=== PATIENT | female | born 1935 | race Caucasian/White ===

== ENCOUNTER → 2018-08-01 | Outpatient (CLI) | payer MEDICARE, OTHER ==
[~2018-08-01] MED LIST: LINA5TAB PO; LISI-170 PO; ROSU10TA2 PO
[2018-08-01 14:36] LABS: ALANINE AMINOTRANSFERASE 12 U/L (12-78); ALBUMIN 3.5 g/dL (3.4-5.0); ANION GAP 6 mmol/L (5-15); CALCIUM 8.9 mg/dL (8.5-10.1); CHLORIDE 110 mmol/L (98-107)
[2018-08-01 14:39] LABS: ALKALINE PHOSPHATASE 84 U/L (45-117); BILIRUBIN,TOTAL 0.4 mg/dL (0.2-1.0); TOTAL PROTEIN 7.3 g/dL (6.4-8.2)
== END | disposition home or self-care (01) ==
LOC: STAR 13:05
PROVIDERS: ATTEND Orthopaedic Surgery
DX: M19.011 Primary osteoarthritis, right shoulder (principal); I44.7 Left bundle-branch block, unspecified; M19.012 Primary osteoarthritis, left shoulder; R20.0 Anesthesia of skin; Z96.659 Presence of unspecified artificial knee joint
CPT/HCPCS: 36415; 80053; 87081; 87147; 93005

== ENCOUNTER 2018-08-10 05:40 | Inpatient (IN) | payer MEDICARE, OTHER ==
[~2018-08-10] VITALS: Ht 160 cm; Wt 83.6 kg
[2018-08-10] MEDS ORDERED: GABAPENTIN 300 MG CAPSULE PO ONE (06:00)
[2018-08-10] MEDS ORDERED: ACETAMINOPHEN 500 MG TABLET PO ONE (06:00)
[2018-08-10] MEDS ORDERED: FENTANYL PF 250 MCG/5ML ONE (06:06)
[2018-08-10] MEDS ORDERED: LACTATED RINGERS 1,000 ML IV SCH (06:09)
[2018-08-10 06:12] VITALS: BP 140/87
[2018-08-10] MEDS ORDERED: PROMETHAZINE 12.5 MG SUPP PR PRN (06:30)
[2018-08-10] MEDS ORDERED: MEPERIDINE/PF 25MG/0.5ML IVPush PRN (06:30)
[2018-08-10] MEDS ORDERED: OXYcodone 5 MG/5 ML ORAL.SOL UDC PO PRN (06:30)
[2018-08-10] MEDS ORDERED: PROMETHAZINE 25 MG SUPP PR PRN (06:30)
[2018-08-10] MEDS ORDERED: HALOPERIDOL 5 MG/ML IV PRN (06:30)
[2018-08-10] MEDS ORDERED: PROMETHAZINE 25 MG/ML, 1ML IV PRN (06:30)
[2018-08-10] MEDS ORDERED: FENTANYL PF 100 MCG/2ML IV PRN (06:30)
[2018-08-10] MEDS ORDERED: HYDROmorphone 2 MG/ML, 1ML IVPush PRN (06:30)
[2018-08-10] MEDS ORDERED: hydrALAzine 20 MG/ML, 1ML IV PRN (06:30)
[2018-08-10] MEDS ORDERED: MORPHINE SULFATE 4 MG/ML, 1ML IVPush PRN (06:30)
[2018-08-10] MEDS ORDERED: LABETALOL 5MG/ML, 20ML IV PRN (06:30)
[2018-08-10] MEDS ORDERED: PROMETHAZINE 25 MG/ML, 1ML IM PRN ×3 (06:30→07:00)
[2018-08-10] MEDS ORDERED: ONDANSETRON ODT 8 MG PO PRN (06:30)
[2018-08-10] MEDS ORDERED: ONDANSETRON 2MG/ML, 2ML IV PRN (06:30)
[2018-08-10] MEDS ORDERED: BUPIVACAINE/PF 0.5% ONE (06:36)
[2018-08-10] MEDS ORDERED: ROPIvacaine/PF 0.5%, 30 ML ONE (06:36)
[2018-08-10] MEDS ORDERED: CLINDAMYCIN 150 MG/ML, 6ML ONE (06:36)
[2018-08-10] MEDS ORDERED: BISACODYL 10 MG SUPP PR PRN (07:00)
[2018-08-10] MEDS ORDERED: morphine SULFATE 10 MG/ML, 1ML IV PRN (07:00)
[2018-08-10] MEDS ORDERED: SENNA/DOCUSATE TABLET PO PRN (07:00)
[2018-08-10] MEDS ORDERED: ACETAMINOPHEN 325 MG TABLET PO PRN (07:00)
[2018-08-10] MEDS: HYDROcodone/APAP 5/325 TABLET PO SCH ×3 (07:00→18:40)
[2018-08-10] MEDS ORDERED: GLYCOPYRROLATE 0.2MG/1ML, 5ML ONE (07:10)
[2018-08-10] MEDS ORDERED: DEXAMETHASONE 4 MG/ML, 1ML ONE (07:10)
[2018-08-10] MEDS ORDERED: PROPOFOL 10 MG/ML, 20ML ONE (07:10)
[2018-08-10] MEDS ORDERED: CEFAZOLIN 1,000 MG ONE (07:10)
[2018-08-10] MEDS ORDERED: ONDANSETRON 2MG/ML, 2ML ONE (07:10)
[2018-08-10] MEDS ORDERED: NEOSTIGMINE 1 MG/ML, 10ML ONE (07:10)
[2018-08-10] MEDS ORDERED: ROCURONIUM 10 MG/ML,10ML ONE (07:10)
[2018-08-10] MEDS: LINAGLIPTIN 5 MG TAB PO SCH (09:00)
[2018-08-10] MEDS: LISINOPRIL 20 MG TABLET PO SCH (09:00)
[2018-08-10] MEDS: DOCUSATE 100 MG CAPSULE PO SCH ×2 (09:00→21:54)
[2018-08-10] MEDS ORDERED: FENTANYL PF 100 MCG/2ML ONE (09:25)
[2018-08-10] MEDS ORDERED: OXYcodone 5 MG/5 ML ORAL.SOL UDC ONE (09:25)
[2018-08-10 12:25] VITALS: BP 114/70
[2018-08-10] MEDS: D5%-0.45% NACL 1,000 ML IV SCH ×2 (12:32→22:49)
[2018-08-10] MEDS: CEFAZOLIN PMX 2GM/50ML 50 ML IVPB SCH ×2 (16:08→23:33)
[2018-08-10] MEDS: ONDANSETRON 2MG/ML, 2ML IV PRN (16:19)
[2018-08-10 20:11] VITALS: BP 123/62
[2018-08-10] MEDS ORDERED: TEMPLATE NON-FORMULARY MED. (Rosuvastatin Calcium** (Crestor**) 10 MG) PO SCH (21:00)
[2018-08-11] MEDS: HYDROcodone/APAP 5/325 TABLET PO SCH ×3 (00:52→12:31)
[2018-08-11] MEDS: HYDROcodone/APAP 5/325 TABLET PO PRN ×2 (00:53→10:42)
[2018-08-11 01:17] VITALS: BP 130/67
[2018-08-11 07:30] VITALS: BP 154/73
[2018-08-11] MEDS: DOCUSATE 100 MG CAPSULE PO SCH (08:29)
[2018-08-11] MEDS: LINAGLIPTIN 5 MG TAB PO SCH (08:29)
[2018-08-11] MEDS: CEFAZOLIN PMX 2GM/50ML 50 ML IVPB SCH (08:29)
[2018-08-11] MEDS: LISINOPRIL 20 MG TABLET PO SCH (08:29)
[2018-08-11] MEDS: ONDANSETRON 2MG/ML, 2ML IV PRN (10:43)
[2018-08-11] MEDS: D5%-0.45% NACL 1,000 ML IV SCH (10:46)
== END 2018-08-11 13:03 | disposition home or self-care (01) | DRG 483 ==
LOC: UNDOADMOB 05:40 → ORIP 05:40 → INTOOBSV 05:40 → UNDOADMOB 05:41 → ORIP 05:41 → 4NOR 10:16 → OBSVTOIN 08-11 11:37 → INTOOBSV 08-11 11:37 → DCLOUNGE 08-11 12:40 → 4NOR 08-11 12:40 → UNDODISIN 08-11 13:03
PROVIDERS: ADMIT Orthopaedic Surgery; ATTEND Orthopaedic Surgery
PROC: 0RRJ00Z Replacement of Right Shoulder Joint with Reverse Ball and Socket Synthetic Substitute, Open Approach (ICD-10-PCS; principal; 2018-08-11)
PROC: 3E0T3BZ Introduction of Anesthetic Agent into Peripheral Nerves and Plexi, Percutaneous Approach (ICD-10-PCS; 2018-08-11)
DX: M12.811 Other specific arthropathies, not elsewhere classified, right shoulder (principal); E78.5 Hyperlipidemia, unspecified; I12.9 Hypertensive chronic kidney disease with stage 1 through stage 4 chronic kidney disease, or unspecified chronic kidney disease; M62.111 Other rupture of muscle (nontraumatic), right shoulder; N18.2 Chronic kidney disease, stage 2 (mild); E11.22 Type 2 diabetes mellitus with diabetic chronic kidney disease; Z88.1 Allergy status to other antibiotic agents; Z88.2 Allergy status to sulfonamides; Z91.018 Allergy to other foods; Z90.711 Acquired absence of uterus with remaining cervical stump; Z98.51 Tubal ligation status; Z87.891 Personal history of nicotine dependence
CPT/HCPCS: 82962; C1713; C1776; G0378; J0690; J1100; J2405; J2704; J2710; J2795; J3010; J3490; C1769; J2270; J7120